=== PATIENT | male | born 1980 | race Hispanic/Latino ===

== ENCOUNTER → 2019-08-20 | Day surgery (SDC) | payer BC ==
[~2019-08-20] MED LIST: FENTANYL CITRATE/PF 100MCG/2 ML INJ ONE; GLUCAGON FOR INJ 1 MG VIAL ONE; HYOSCYAMINE 0.125 MG TAB ONE; LIDOCAINE HCL 2% LOCAL INJ 5 ML SDV VIAL INJ ONE; METOCLOPRAMIDE HCL 10 MG/2ML VIAL ONE; MIDAZOLAM HCL 2 MG/2 ML VIAL ONE; PROPOFOL IV EMULSION 10 MG/ML 50 ML VIAL ONE
[2019-08-20 15:05] VITALS: BP 112/68
--- NOTE | 2019-08-20 22:04 | Operative Report ---
DATE OF PROCEDURE: 08/20/2019 SURGEON: Dimitrios Morrison MD PROCEDURES: EGD with biopsies and colonoscopy with polypectomy and biopsies. INDICATION FOR EGD: Dyspepsia. INDICATIONS FOR COLONOSCOPY: Lower abdominal pain. MEDICATIONS: The patient was done under MAC. Please see anesthesiologist's note. PROCEDURE IN DETAIL: With the patient in left lateral decubitus position, a flexible fiberoptic Olympus gastroscope was introduced into the esophagus under direct visualization without any difficulty. Some focal nodularity was noted in the cervical esophagus below and inlet patch and that was biopsied. The scope was then advanced with ease into the distal esophagus and some erosions were noted. Also, there were some tongues of velvety red mucosa were noted to extend proximally from the GE junction and biopsies were obtained to rule out Real's. The scope was then advanced with ease into the stomach. [place] was advanced with ease into the stomach. Mucosa overlying the antrum and the body revealed some patchy erythema and low-grade to moderate edema and biopsies were obtained, sent to stain for H. pylori. Pylorus was of normal contour and shape, was intubated with ease and the scope was advanced all the way to the second portion of the duodenum. Biopsies were obtained from the proximal second portion and duodenal bulb to rule out sprue. The scope was then withdrawn back into the stomach and retroflexed and the fundal diverticulum was noted. The cardia appeared to be within normal limits. The scope was then straightened out. It was subsequently withdrawn. The patient tolerated the procedure well. IMPRESSION: 1. Focal nodularity cervical esophagus, biopsied. 2. Erosive distal esophagitis. 3. Rule out Real esophagus. 4. Gastritis, biopsied. Biopsies sent to stain for Helicobacter pylori. 5. Fundus diverticulum. 6. Rule out sprue. PLAN: Follow up histology. Initiate Protonix 40 mg 1 p.o. q.a.m. a.c. The patient was then turned around after adequate lubrication of the anal canal. A flexible fiberoptic Olympus colonoscope was inserted into the rectum with ease and advanced all the way to the cecum. It was then withdrawn slowly. Mucosa overlying the cecum appeared to be within normal limits. Ileocecal valve was intubated and scope was advanced into the terminal ileum. Biopsies were obtained. The scope was then withdrawn back into the colon. The rest of the ascending appeared to be within normal limits. In the distal transverse colon, a minute polyp was noted that was removed per the hot biopsy forceps. The rest of the transverse appeared to be within normal limits. Mild patchy inflammatory changes were noted in the left colon and the rectum and biopsies were obtained. Some minimal diverticulosis was noted in the sigmoid colon. The scope was then retroflexed into the distal rectum and small internal hemorrhoids were noted, none of which was actively bleeding. The scope was then straightened out. It was subsequently withdrawn. The patient tolerated procedure well. IMPRESSION: 1. Transverse colon polyp, hot biopsied. 2. Mild patchy left-sided colitis. 3. Diverticulosis, minimal. 4. Proctitis, mild. 5. Internal hemorrhoids, none actively bleeding. PLAN: Follow up histology. Initiate Bentyl 10 mg one p.o. t.i.d. Start Visbiome one p.o. b.i.d. The patient might benefit from a followup colonoscopy in 5 years. Dimitrios Morrison MD [facility] – [place]/MODL /[id number] cc: Lyle Dover
== END | disposition home or self-care (01) ==
LOC: OR 08:39
PROVIDERS: ATTEND Internal Medicine Gastroenterology
DX: K57.92 Diverticulitis of intestine, part unspecified, without perforation or abscess without bleeding (principal); K63.5 Polyp of colon; K29.70 Gastritis, unspecified, without bleeding; K51.50 Left sided colitis without complications; K29.80 Duodenitis without bleeding; K22.10 Ulcer of esophagus without bleeding; K31.4 Gastric diverticulum; K22.8 Other specified diseases of esophagus; K62.89 Other specified diseases of anus and rectum; K21.9 Gastro-esophageal reflux disease without esophagitis; K64.8 Other hemorrhoids; K76.0 Fatty (change of) liver, not elsewhere classified; N20.0 Calculus of kidney; Z87.891 Personal history of nicotine dependence
CPT/HCPCS: 43239; 45380; 45384; J1610; J2001; J2250; J2704; J2765; J3010; 45378

== ENCOUNTER → 2024-06-27 | Day surgery (SDC) | payer BC, OTHER ==
[~2024-06-27] MED LIST changes: +FENOFIBRATE145 MG PO; -GLUCAGON FOR INJ 1 MG VIAL ONE; -HYOSCYAMINE 0.125 MG TAB ONE; +HYOSCYAMINE SULFATE 0.5 MG/ML INJ ONE; -METOCLOPRAMIDE HCL 10 MG/2ML VIAL ONE; -MIDAZOLAM HCL 2 MG/2 ML VIAL ONE; +ONDANSETRON HCL INJ 2MG/ML 2ML 2 MG/ML VIAL ONE; +PROPOFOL IV EMULSION 10 MG/ML 20 ML VIAL ONE; -PROPOFOL IV EMULSION 10 MG/ML 50 ML VIAL ONE
[2024-06-27 08:01] VITALS: TEMP 98.8
[2024-06-27] MEDS: ONDANSETRON HCL INJ 2MG/ML 2ML 2 MG/ML VIAL IV ONE (08:10)
[2024-06-27 08:30] VITALS: BP 120/82; PULSE 64; RESP 16; O2SAT 97
[2024-06-27] MEDS: LACTATED RINGER'S 1,000 ML ONE (12:36)
== END | disposition home or self-care (01) ==
LOC: OR 06:25
PROVIDERS: ATTEND Internal Medicine Gastroenterology
DX: K57.92 Diverticulitis of intestine, part unspecified, without perforation or abscess without bleeding (principal); D12.3 Benign neoplasm of transverse colon; K64.8 Other hemorrhoids; R00.1 Bradycardia, unspecified; E78.5 Hyperlipidemia, unspecified; K21.9 Gastro-esophageal reflux disease without esophagitis; N20.0 Calculus of kidney; E66.9 Obesity, unspecified; Z01.810 Encounter for preprocedural cardiovascular examination; Z79.899 Other long term (current) drug therapy; Z68.32 Body mass index [BMI] 32.0-32.9, adult
CPT/HCPCS: 45385; 93005; J1980; J2003; J2405; J2704; J3010; J7121; 45378